=== PATIENT | male | born 1960 | race Caucasian/White ===

== ENCOUNTER 2018-08-16 13:08 | Emergency (ER) | payer SELFPAY ==
[2018-08-16 13:14] VITALS: BP 150/81; PULSE 84; RESP 18; TEMP 36.7; O2SAT 97
--- NOTE | 2018-08-16 13:27 | W.ED.GENAD ---
Discharge Plan Disposition Patient Disposition: HOME Condition: Stable Discharge Details Chief Complaint: Cellulitis Clinical Impression: Abscess or cellulitis of back Primary Care Provider: None,None ED Provider: Ann-Marie Cuadra Home Meds and New Rx's Prescriptions: New sulfamethoxazole-trimethoprim [Bactrim DS] 800-160 mg tablet 2 tab PO BID 7 Days Qty: 28 RF: 0 Discharge Instructions Instructions: Cellulitis (ED) Additional Instructions: Apply warm compresses to the affected area several times daily. Keep wound covered if risk of contamination. Otherwise keep open to air to allow to heal. Alternate Tylenol and Motrin as needed and directed for pain. Take the antibiotics until finished. You should receive a call from care management regarding follow-up with a primary care doctor for reevaluation. Return to the emergency department any worsening or new concerning symptoms. Discharge Data Discharge Date/Time-TO BE ENTERED AT DEPARTURE: 08/16/18 14:15 Discharge Physician: Ann-Marie Cuadra Medical Decision Making 58yo M with left mid back cellulitis and questionable abscess in center that he noted since yesterday. Patient has no fever and appears nontoxic. There is an approximate 4 x 4 centimeter area of erythema and induration with a very small 0.5 x 0.5 cm raised area which may be fluctuance in center. Bedside ultrasound was done and noted questionable abscess so area was anesthetized with 8 cc of lidocaine without epinephrine and incised with #15 blade but no pus drainage expressed and only blood expressed. Area was irrigated with normal saline and covered with gauze dressing. Dose of Bactrim given here and prescription for home. Patient was instructed on the importance of warm compresses, keeping area clean and dry, and to finish the antibiotics. He was instructed to return here immediately if worse with any signs of fever, worsening pain, redness or swelling or red streaking. Patient was placed on care management list to arrange for a follow-up appointment with a primary care doctor for reevaluation. HPI General Mode of arrival: ambulatory. Date/Time Provider Initiated Documentation: 08/16/18 13:13. Limitations to Documentation: no limitations. Information obtained by: patient. HPI Narrative: Patient is a 58yo M who presents to the ED with a complaint of a red painful lump on his left mid back that he noticed yesterday. Patient states the area has increased in size and hurts to touch. He denies known fever. He denies known insect bite. He states he has not used any medication on the area and did not attempt to manipulate the area. Past medical history: None Surgical history: Appendectomy Social history: Smokes tobacco, denies alcohol or drugs Meds: none Allergies: none PCP: none Related Data Home Medications Medication Instructions Recorded Confirmed sulfamethoxazole-trimethoprim 2 tab PO BID 7 Days #28 tab 08/16/18 [Bactrim DS] Previous Rx's Medication Instructions Recorded sulfamethoxazole-trimethoprim 2 tab PO BID 7 Days #28 tab 08/16/18 [Bactrim DS] Allergies Allergy/AdvReac Type Severity Reaction Status Date / Time No Known Allergies Allergy Unverified 08/16/18 13:19 General Stated Complaint: Cellulitis CHANTELLE: 4 Review of Systems Review of Systems All systems reviewed & are unremarkable except as noted in HPI and below Constitutional Reports as per HPI, Denies chills and Denies fever(s) Eyes Denies blurry vision ENT Denies dizziness, Denies sore throat and Denies throat swelling Cardiovascular Denies chest pain and Denies dyspnea Respiratory Denies dyspnea Gastrointestinal Denies abdominal pain, Denies diarrhea and Denies vomiting Genitourinary Denies hematuria and Denies dysuria Musculoskeletal Denies back pain and Denies numbness Integumentary/Breasts Denies lesions and Denies rash Neurologic Denies dizziness and Denies numbness Allergic/Immunologic Denies throat swelling [facility] Social History Smoking/Tobacco Use Status: Current every day Exam Const General: cooperative, healthy appearing and no acute distress [facility] Head: normal to inspection Mouth: oral mucosae normal Eyes General: appearance normal, both eyes and all related structures Neck Neck: normal visual inspection Resp Effort & Inspection: normal respiratory effort and able to speak in complete sentences Cardio Rate: regular rate Back/Spine/Pelvis Back: other Back/spine/pelvis image: 1. An approximate 4 x 4 centimeter area of erythematous induration and tenderness with a 0.5 x 0.5 cm area of fluctuance in center. No active bleeding or drainage. Skin General skin exam: no rashes or lesions noted Neuro General: alert, awake and oriented x3 Motor: muscle tone normal throughout Extrem General: normal to inspection and full ROM Psych Appearance: grossly normal Affect: normal affect Course Vital Signs Temperature 98.0 F 08/16/18 13:14 Pulse 84 08/16/18 13:14 Respiratory Rate 18 08/16/18 13:14 Blood Pressure 150/81 H 08/16/18 13:14 Pulse Oximetry 97 08/16/18 13:14 Temperature 98.0 F 08/16/18 13:14 Temperature Source Skin 08/16/18 13:14 Pulse 84 08/16/18 13:14 Respiratory Rate 18 08/16/18 13:14 Respiratory Effort 08/16/18 13:17 Blood Pressure 150/81 H 08/16/18 13:14 Blood Pressure Position Sitting 08/16/18 13:14 Pulse Oximetry 97 08/16/18 13:14 Pain Level 7 08/16/18 13:14 Procedures Abscess I/D Site: Back Side (if applicable): Left Local Anesthetic: Lidocaine 1% Amount of anesthesia used (mL): 8 Technique: Other (incised with #15 blade) Amount of fluid expressed (mL): 1 (only blood; no pus expressed) Irrigation: Yes Packing used?: None
[2018-08-16] MEDS: Sulfameth/Trimeth DS TAB 2 TAB PO (14:08)
[2018-08-16 14:10] VITALS: BP 138/79; PULSE 74; RESP 16; TEMP 36.7; O2SAT 98
== END 2018-08-16 14:15 | disposition home or self-care (01) ==
PROVIDERS: Emergency Provider Physician Assistant; PCP Nurse Practitioner Family
DX: L03.312 Cellulitis of back [any part except buttock and flank] (principal); L02.212 Cutaneous abscess of back [any part, except buttock and flank]
CPT/HCPCS: 10060

== ENCOUNTER 2021-01-05 17:42 | Emergency (ER) | payer SELFPAY ==
[2021-01-05] VITALS (36 sets, daily range): BP systolic 121–161; BP diastolic 57–83; PULSE 56–73; RESP 1–28; TEMP 37.2; O2SAT 88–98
--- NOTE | 2021-01-05 17:30 | RT.EKG_ITS ---
APPROVED REPORT Exam: Resting ECG Patient Location: E HR:71 bpm ECG Measurements Heart Rate 71 AXIS MT 157 P -7 QRSd 127 QRS -28 QT 398 T 48 QTc 433 Conclusion Sinus rhythm. RBBB..
[2021-01-05] MEDS: MORPHine 10 MG/ML VIAL 4 MG IVP (18:10)
--- NOTE | 2021-01-05 18:10 | ED.GENADUL_ITS ---
Discharge Plan Disposition Patient Disposition: HOME Condition: Improving Discharge Details Clinical Impression: Lingular pneumonia Primary Care Provider: Abril Hahn ED Provider: Jordy Melendez Home Meds and New Rx's Prescriptions: New cefdinir 300 mg capsule 300 mg PO Q12H 10 Days Qty: 20 RF: 0 Discharge Instructions Instructions: Pneumonia (ED) Additional Instructions: Home to rest today. Small, frequent sips of fluids so that you maintain good hydration. May use Tylenol and/or ibuprofen as needed for aches, pains, fever. Use incentive spirometer 10 times per hour while awake. Take antibiotics as prescribed. We will ask our care management team to arrange a follow-up for you to establish local primary care and to have a recheck. Return to the ER for any acute concerns. Medical Decision Making 60-year-old male presents from home complaining of the onset of left chest/epigastric discomfort that began yesterday. Intermittent at first and then persistent today. Worse with deep breath. Denies fall or injury. No nausea or vomiting. He is slightly hypertensive at 161/75, pulse 73, 95 to 97% on room air. He is almost guarding in the upper quadrants of the abdomen and splinting with breathing. Differential diagnosis includes basilar/left pneumonia, pneumothorax, mass, PE, ACS peptic ulcer disease, pancreatitis. Patient IV access established, given 4 mg of morphine, referred for screening EKG, laboratories, images. White blood cell count slightly elevated 11.1, hematocrit 47, platelets 299. Chemistries show sodium 135, potassium 3.5, chloride 99, bicarb 28, BUN 18, creatinine 1.0. LFTs unremarkable, troponin negative, lipase within normal limits. D-dimer negative. CT: There is a 9 mm nodule in the right lower lung. There is a parenchymal focus in the lingula measuring 2.7 x 1.3 cm; scarring versus atelectasis. No PE. Given the elevated white blood cell count, and the patient's history of smoking, I do feel this most likely represents a walking pneumonia. Patient given ceftriaxone, ketorolac, observed on a apprentice lineman third step and repeat troponin obtained. Repeat troponin is negative. After use of incentive spirometer, DuoNeb, patient is significantly improved. He was given ceftriaxone and I will place him on oral cephalosporin. He is improved and will ask care management to arrange a follow-up for him to establish local primary care. Lab Data Lab results reviewed: Yes I reviewed the patient's lab results. Labs: Laboratory Results - last 24 hr 01/05/21 01/05/21 01/05/21 17:50 17:50 17:50 WBC 11.15 H RBC 5.32 Hgb 16.1 Hct 47.1 MCV 88.5 MCH 30.3 MCHC 34.2 RDW 13.4 Plt Count 299 MPV 12.1 H Immature Gran % 0.0 Neutrophils % 52.0 Lymphocytes % 39.0 Monocytes % 6.0 Eosinophils % 3.0 Basophils % 0.0 Nucleated RBC % 0 Absolute Neutrophils 5.80 Absolute Lymphocytes 4.35 H Absolute Monocytes 0.67 Absolute Eosinophils 0.33 Absolute Basophils 0.00 RBC Morphology Normal PT 10.4 INR 1.0 APTT 23.9 D-Dimer 487 Sodium 135 L Potassium 3.5 Chloride 99 Carbon Dioxide 28.5 Anion Gap 7.5 BUN 18 Creatinine 1.0 Estimated GFR/1.73 m2 >= 60.00 Glucose 174 H Calcium 9.2 Magnesium 1.9 Total Bilirubin 0.3 AST 15 ALT 36 Alkaline Phosphatase 109 Troponin I < 0.05 Total Protein 8.0 Albumin 3.8 Lipase 368 Urine Color Urine Clarity Urine pH Ur Specific [place] Urine Protein Urine Ketones Urine Blood Urine Nitrite Urine Bilirubin Urine Urobilinogen Ur Leukocyte Esterase Urine Glucose 01/05/21 18:50 WBC RBC Hgb Hct MCV MCH MCHC RDW Plt Count MPV Immature Gran % Neutrophils % Lymphocytes % Monocytes % Eosinophils % Basophils % Nucleated RBC % Absolute Neutrophils Absolute Lymphocytes Absolute Monocytes Absolute Eosinophils Absolute Basophils RBC Morphology PT INR APTT D-Dimer Sodium Potassium Chloride Carbon Dioxide Anion Gap BUN Creatinine Estimated GFR/1.73 m2 Glucose Calcium Magnesium Total Bilirubin AST ALT Alkaline Phosphatase Troponin I Total Protein Albumin Lipase Urine Color Yellow Urine Clarity Clear Urine pH 5.5 Ur Specific [place] 1.015 Urine Protein Negative Urine Ketones Negative Urine Blood Negative Urine Nitrite Negative Urine Bilirubin Negative Urine Urobilinogen 0.2 Ur Leukocyte Esterase Negative Urine Glucose Negative HPI General Mode of arrival: ambulatory . Date/Time Provider Initiated Documentation: 01/05/21 17:57 . Limitations to Documentation: no limitations . Information obtained by: patient . History of Present Illness 60 year old M presents to the emergency department with the chief complaint of Left chest/epigastric pain, described as moderate and severe, Quality is described as constant, and is localized to the chest, abdomen and left. Patient started experiencing this day(s) and it has been intermittent. No relieving factors improve symptom(s), No exacerbating factors reported . Patient notes other (Worse with deep breath). Patient did receive the following treatments prior to arrival, none Related Data Home Medications Medication Instructions Recorded Confirmed cefdinir 300 mg PO Q12H 10 Days #20 cap 01/05/21 Previous Rx's Medication Instructions Recorded cefdinir 300 mg PO Q12H 10 Days #20 cap 01/05/21 Allergies Allergy/AdvReac Type Severity Reaction Status Date / Time No Known Allergies Allergy Unverified 01/05/21 17:56 General Stated Complaint: Chest Pain CHANTELLE: 2 Review of Systems Narrative: 6 systems reviewed and otherwise negative [facility] Social History Smoking/Tobacco Use Status: Current every day Tobacco Type: cigarettes Smoking risk assessment performed?: Yes Alcohol Intake: current Alcohol Intake frequency: a few times a week Drug use: Never Do you feel safe at home: Yes Do you feel safe in your relationship?: Yes Exam Narrative Exam Narrative: GEN: awake, alert, oriented 3. Pleasant, well groomed, interactive. HEAD: Normocephalic, atraumatic ENT: Mucous membranes moist, oropharynx unremarkable, External ear exam unremarkable EYES: PERRL, EOMI NECK: Full ROM, no GISELLA, no menigismus CHEST/RESP: Nontender, diminished throughout, subtle rhonchi left base CARDIOVASCULAR: RRR, no murmur, rub tatyana. 2+ Rad pulse bilateral ABDOMEN: Soft, tender in epigastrium, left upper quadrant, no mass. +Bowel sounds EXT: Full ROM, no edema, no rash Neuro: Grossly normal neurologic exam, conversant, interactive. Psych: Speech fluent, thoughts congruent, affect normal Course Vital Signs Vital signs: Vital Signs Temperature 37.2 C 01/05/21 17:51 Pulse 73 01/05/21 17:51 Respiratory Rate 28 H 01/05/21 17:51 Blood Pressure 161/75 H 01/05/21 17:51 Pulse Oximetry 95 01/05/21 17:51 Temperature 37.2 C 01/05/21 17:51 Temperature Source Temporal Artery Scan 01/05/21 17:51 Pulse 73 01/05/21 17:51 Respiratory Rate 16 01/05/21 18:00 Respiratory Effort Labored 01/05/21 18:00 Respiratory Depth Normal 01/05/21 18:00 Respiratory Pattern Normal 01/05/21 18:00 Blood Pressure 161/75 H 01/05/21 17:51 Blood Pressure Position Supine 01/05/21 17:51 Pulse Oximetry 95 01/05/21 17:51 Oxygen Delivery Method Room Air 01/05/21 17:51 Oxygen Flow Rate 0 01/05/21 17:51 Pain Level 9 01/05/21 17:51
[2021-01-05 18:26] LABS: Abs Immature Grans 0.02 10^3/uL (0.0-0.06); HCT 47.1 % (40.0-50.0); HGB 16.1 g/dL (13.5-17.5); MCH 30.3 pg (27.0-33.0); MCHC 34.2 % (32.0-36.0); MCV 88.5 fL (80-95); MPV 12.1 fL (8.0-11.0); Nucleated RBC 0 %; Platelet Count 299 10^3/uL (130-400); RBC 5.32 10^6/uL (4.36-5.78); RDW 13.4 % (11.8-14.1); RDW-SD 43.4 fL; WBC 11.15 10^3/uL (4.4-10.8)
[2021-01-05 18:48] LABS: Absolute Eosinophil Count 0.33 10^3/uL (0.0-0.7); Absolute Lymphocyte Count 4.35 10^3/uL (1.2-3.4); Absolute Monocyte Count 0.67 10^3/uL (0.1-0.8); PTT Activated 23.9 sec (21.0-27.5); Prothrombin Time 10.4 sec (9.3-11.0)
[2021-01-05 18:49] LABS: ALT 36 U/L (16-63); AST 15 U/L (15-37); Albumin 3.8 g/dL (3.4-5.0); Alkaline Phosphatase 109 U/L (46-116); Anion Gap 7.5 mmol/L (3-11); BUN 18 mg/dL (7-18); Bilirubin, Total 0.3 mg/dL (0.2-1.0); CO2 28.5 mmol/L (21.0-32.0); Calcium 9.2 mg/dL (8.5-10.1); Chloride 99 mmol/L (98-107); Diff Comment Manual Differential; Glucose 174 mg/dL (74-106); Lipase 368 U/L (73-393); Magnesium 1.9 mg/dL (1.8-2.4); Potassium 3.5 mmol/L (3.5-5.1); RBC Morphology Normal; Sodium 135 mmol/L (136-145)
[2021-01-05 18:50] LABS: Troponin I < 0.05 ng/mL (<0.06)
[2021-01-05 19:04] LABS: D-Dimer 487 ng/mlFEU (<500)
[2021-01-05 19:07] LABS: Bilirubin Negative (Negative); Blood Negative (Negative); Clarity Clear (Clear); Glucose Negative (Negative); Ketones Negative (Negative); Leukocyte Esterase Negative (Negative); Nitrite Negative (Negative); Specific Gravity 1.015 (1.005-1.025); Urobilinogen 0.2 EU/dL (Up TO 0.2); pH 5.5 (5-8)
[2021-01-05] MEDS: Normal Saline - Diluent 50 ML VIAL IV (19:13)
[2021-01-05] MEDS: Omnipaque 350 MG/ML 100 ML BTL IJ (19:14)
[2021-01-05] MEDS: Normal Saline Flush 10 ML SYR IVP (19:14)
--- NOTE | 2021-01-05 19:15 | DI.CT_ITS ---
EXAM: CT CHEST PE ABD PELVIS W CLINICAL HISTORY: LUQ/L chest pain. TECHNIQUE: Imaging Protocol: Axial CT angiography was performed with multi-slice acquisition and m ulti-planar and/or 3D reconstructions. CONTRAST MATERIAL: Intravenous: Omnipaque 350 Contrast volume:100 ml Oral: no COMPARISON: No exams were available for comparison FINDINGS: CHEST: Pulmonary Arteries: No evidence of filling defect to suggest pulmonary emboli. Tracheobronchial tree: Patent where visualized. Mediastinum and Collette: Small mediastinal lymph nodes. Pulmonary parenchyma: Limited by expiratory changes and respiratory motion. Question of diffuse bila teral infiltrates. 7 millimeter nodule at the right lower lobe. Scarring or atelectasis at the ling [place]. Pleura: No effusion or pneumothorax. Heart: The heart is not dilated. No coronary artery calcifications are seen. Aorta: Thoracic aorta non-dilated. Mild atherosclerotic changes. Tortuous distally. Bones: Normal. Tubes, Catheters, and Lines: None ABDOMEN AND PELVIS: Abdomen: Celiac axis/mesenteric arteries: No evidence of occlusion or significant stenosis. Renal Arteries: No evidence of occlusion or significant stenosis. There is a single renal artery per fusing each kidney. Aorta: No evidence of occlusion or significant stenosis. No aneurysm or dissection. Moderate ath erosclerotic changes. Pelvis: Iliac Arteries: No evidence of occlusion or significant stenosis. Common Femoral Arteries: No evidence of occlusion or significant stenosis. ABDOMEN: Liver: Mildly enlarged. Mild to moderate fatty infiltration.. No measurable mass. Portal, Superior Mesenteric, and Splenic Veins: Unremarkable. Gallbladder and Biliary Tract: Small gallstones. No biliary dilation. Pancreas: Normal density, no abnormal calcifications or inflammatory process. Spleen: Normal. Adrenals: No masses seen. Kidneys: Normal size, contour and axis. No radiodense stones or obstructive uropathy. No masses seen. Renal cysts. Bowel: No obstruction or bowel wall thickening. Appendix is not visualized. Peritoneal Cavity: No ascites, collection or mesenteric inflammatory response. Lymph Nodes: Within normal limits. Bones: Degenerative changes. Soft Tissues: Unremarkable. PELVIS: Bladder: Symmetric distention, mild wall thickening. Reproductive Organs: Unremarkable as visualized. Lymph Nodes: Within normal limits. Bones: Degenerative changes. IMPRESSION: No pulmonary embolism. 7mm nodule Right lower lobe. Recommend Chest Ct in 3months. Cholelithiasis. No evidence of acute cholecystitis. RADIATION DOSE DELIVERED: 1,552.07mGy.cm Total DLP 1,552.07mGy.cm Total DLP DATA REPOSITORY: All CT scans at this facility are submitted to the National Radiology Data Registry (NRDR) Dose Index Registry (DIR) with the [employer] (ACR). RADIATION OPTIMIZATION: All CT scans at this facility use at least one of these dose optimization te chniques: automated exposure control; mA and/or kV adjustment per patient size (includes targeted exa ms where dose is matched to clinical indication); or iterative reconstruction.
--- NOTE | 2021-01-05 19:57 | DI.VRAD_ITS ---
PROCEDURE INFORMATION: Exam: CTA Chest With Contrast Exam date and time: 01/05/2021 6:31 PM Age: 60 years old Clinical indication: Chest pain; Type not specified; Abdominal pain; Localized; Left upper quadrant (luq) TECHNIQUE: Imaging protocol: Computed tomographic angiography of the chest with contrast. 3D rendering (Not supervised by radiologist): MIP and/or 3D reconstructed images were created by the technologist. Total images: [id number] Radiation optimization: All CT scans at this facility use at least one of these dose optimization techniques: automated exposure control; mA and/or kV adjustment per patient size (includes targeted exams where dose is matched to clinical indication); or iterative reconstruction. Contrast material: [id number]; Contrast volume: 100 ml; Contrast route: INTRAVENOUS (IV); COMPARISON: No relevant prior studies available. FINDINGS: Pulmonary arteries: No filling defect in the pulmonary arterial tree. Aorta: There is mild atherosclerotic change within a tortuous thoracic aorta without aneurysm or dissection. Lungs: There is a 9 mm nodule in the right lower lobe (image 318 of series 5). There is a parenchymal focus in the lingula measuring 2.7 x 1.3 cm most likely representing scarring versus atelectasis. There is a generalized mosaic attenuation pattern throughout both lungs which may be due to air trapping. No consolidation. Pleural spaces: No pneumothorax. No pleural effusion. Heart: No pericardial effusion. Lymph nodes: There is a borderline enlarged 1.1 cm right paratracheal node and a similar sized left hilar node. There are enlarged but fatty containing axillary nodes. Bones/joints: No significant bony or joint space abnormality. Soft tissues: Extrathoracic soft tissues are unremarkable. IMPRESSION: 1. No acute findings. No PE. 2. 9 mm right lower lobe nodule. Abnormal parenchymal focus within the lingula probably although not definitively representing scar or atelectasis. For both low risk and high risk patients, consider CT Chest at 3 months, PET/CT, or biopsy. (Reference: Gloria) REFERENCES: Gloria Goldberg et al. Guidelines for Management of Incidental Pulmonary Nodules Detected on CT Images: From the Fleischner Society 2017. Radiology. 2017;284(1):228-243. PROCEDURE INFORMATION: Exam: CT Angiography Abdomen With Contrast Exam date and time: 01/05/2021 6:31 PM Age: 60 years old Clinical indication: Chest pain; Type not specified; Abdominal pain; Localized; Left upper quadrant (luq) TECHNIQUE: Imaging protocol: Computed tomographic angiography images of the abdomen with intravenous contrast material. 3D rendering (Not supervised by radiologist): MIP and/or 3D reconstructed images were created by the technologist. Radiation optimization: All CT scans at this facility use at least one of these dose optimization techniques: automated exposure control; mA and/or kV adjustment per patient size (includes targeted exams where dose is matched to clinical indication); or iterative reconstruction. Contrast material: [id number]; Contrast volume: 100 ml; Contrast route: INTRAVENOUS (IV); COMPARISON: No relevant prior studies available. FINDINGS: Aorta: There is moderate atherosclerotic change within the wall the abdominal aorta but without aneurysm or dissection. Celiac trunk and mesenteric arteries: No occlusion or significant stenosis. Renal arteries: No occlusion or significant stenosis. Left iliac arteries: Mild to moderate bilateral common and external iliac disease. Liver: Normal. No mass. Gallbladder and bile ducts: There are multiple dependent calcified stones within the gallbladder. Pancreas: Normal. No ductal dilation. Spleen: No splenomegaly. Adrenals: Normal. No mass. Kidneys and ureters: There are incidental small renal cysts. No hydronephrosis. Stomach and bowel: Unremarkable. No small or large bowel dilatation. No pericolonic inflammation. Appendix: The appendix is not identified. Lymph nodes: Unremarkable. No enlarged lymph nodes. Intraperitoneal space: Unremarkable. No free air. No significant fluid collection. Reproductive: The prostate is mildly enlarged. Bladder: There is mild bladder wall thickening. Bones/joints: Unremarkable. No acute fracture. No dislocation. Soft tissues: Unremarkable. IMPRESSION: 1. No acute finding. 2. Cholelithiasis. 3. Additional findings as noted above. Dictated and Authenticated by: Jordy Shannon MD. Ordering:ESEQUIEL Spence MD
[2021-01-05] MEDS: Ketorolac 15 MG/ML VIAL IVP (20:05)
[2021-01-05] MEDS: cefTRIAXone 1 GM/50 ML BAG IVPB (20:08)
[2021-01-05] MEDS: Albuterol/Ipratropium 3 ML UPD VIAL UPD (20:14)
--- NOTE | 2021-01-05 20:27 | NUR.NOTE ---
Nursing Note:Attempt to call report to Moira at [facility], will call me back
[2021-01-05 22:14] LABS: Troponin I < 0.05 ng/mL (<0.06)
--- NOTE | 2021-01-06 02:54 | NUR.NOTE ---
Nursing Note: referral for pcp/pneumonia faxed to care management 01/06/21 libl
--- NOTE | 2021-01-06 10:15 | CMPROGNOTE_ITS ---
- If Service Date Differs Date of service: 01/06/21 Time of Service: 10:16 Care Management Progress Note Rayo is seen in the ED for lingular pneumonia. At the request of ED provider, CM coordinates a referral to Dr. Stanislaw Siu of [facility] [[email or web address]], on-call provider, to assist Rayo in obtaining a follow up appointment and in establishing care with a PCP.
== END 2021-01-05 23:04 | disposition home or self-care (01) ==
PROVIDERS: Emergency Provider Emergency Medicine; PCP Nurse Practitioner Family
DX: J18.1 Lobar pneumonia, unspecified organism (principal)
CPT/HCPCS: 71275; 74177; 80053; 83690; 93005; 94640; 96365; 96375; 99285; 81003; 83735; 84484; 85025; 85379; 85610; 85730; 93010; 99284; J0696; J1885; J2270; J3490; J7620

== ENCOUNTER 2021-03-17 10:01 | Inpatient (IN) | payer MEDICAID, SELFPAY ==
[2021-03-17] VITALS (86 sets, daily range): BP systolic 107–154; BP diastolic 59–90; PULSE 61–153; RESP 17–39; TEMP 36.6–37.2; O2SAT 89–97
--- NOTE | 2021-03-17 10:00 | RT.EKG_ITS ---
APPROVED REPORT Exam: Resting ECG Reason for Exam: chest pain Patient Location: E HR:76 bpm ECG Measurements Heart Rate [address] 155 P 9 QRSd 110 QRS -9 QT 374 T 43 QTc 419 Conclusion Sinus rhythm...normal P axis, V-rate 60- 99 ST elevation, consider inferior injury...ST >0.08mV, II III aVF
--- NOTE | 2021-03-17 10:00 | DI.CT_ITS ---
Exam(s) CT THORAX ABDOMEN CTA EXAM: CT THORAX ABDOMEN CTA CLINICAL HISTORY: central chest pain from neck to upper abd, 1d. TECHNIQUE: Imaging Protocol: Axial computed tomography images with coronal and sagittal reformatted images were created and reviewed CONTRAST MATERIAL: Intravenous: Omnipaque 350 Contrast volume:100 ml Oral: None COMPARISON: CT CT CHEST PE ABD PELVIS W from 01/05/2021 FINDINGS: CHEST: Images somewhat degraded by respiratory motion artifact. LUNGS: There is infiltrate in left lower lobe and moderate-sized left pleural effusion with some volu me loss in the basal segments of the left lower lobe.. Mild increased markings but without confluent infiltrates are seen in the right lower lobe. There is no pleural effusion on the right side. Ther e are no focal findings in the trachea and mainstem bronchi. MEDIASTINUM: No significant hilar nor mediastinal adenopathy. Visualized thyroid unremarkable. CARDIAC: Heart size minimally prominent. There is a small pericardial effusion with thickness 5 mill imeters. AORTA: Caliber of the thoracic aorta is within normal limits.There is no evidence of aortic dissectio n. ABDOMEN: The pelvis was not scanned and therefore the abdominal aorta appears to have been imaged to a level j ust above the bifurcation. There is some atherosclerotic involvement of the infrarenal abdominal aorta most prominent distally. The inferior mesenteric artery is patent but there is significant circumferential plaque at this lev el and lack of normal tapering. The diameter of the distal most abdominal aorta is 2.2 cm. More proximally the celiac and superior mesenteric arteries are nicely patent with no significant dee dee nosis at their origins. There is some posterior wall noncalcified plaque in the abdominal aorta just above the level of the takeoff points of the renal arteries. There is a solitary renal artery on ea ch side with no significant ostial stenosis nor stenosis more distally in the renal arteries and no e vidence of fibromuscular dysplasia of the renal arteries. Kidneys exhibit normal size. There is no ascites. There are no ischemic appearing bowel loops. LIVER: There are no focal hepatic lesions nor dilatation of intrahepatic ducts. GALLBLADDER/BILIARY: There are multiple gallstones in the gallbladder lumen. The gallbladder is not distended and the gallbladder wall is not edematous. There is no pericholecystic fluid. CBD is not dilated. PANCREAS: No evidence of pancreatic mass nor dilatation of the pancreatic duct. SPLEEN: Spleen is not enlarged. There are no intrasplenic lesions. ADRENALS: There are no significant adrenal masses. KIDNEYS: There is a 1.8 x 1.8 cm cyst in the anterior cortex of the left kidney. No other focal gayle l findings the exception of a small 6 millimeter exophytic cyst off the lateral cortex left kidney. No calculi nor hydronephrosis.. ABDOMINAL AORTA: As above LYMPH NODES: There is no retroperitoneal nor para-aortic adenopathy. No obvious mesenteric masses. ABDOMINAL WALL: In the field of view of this study there is no evidence of anterior abdominal wall he rnia. GI: There are diverticuli in the visualized upper half of the descending left colon without evidence of obvious diverticulitis. The appendix is not included in the field of view of this CT study (pelvi s was not scanned). There is no bowel obstruction. OSSEOUS: The pelvis was not scanned IMPRESSION: 1. On this CTA study there is no evidence of aortic dissection. However, there is significant athero sclerotic involvement of the lower abdominal aorta. However, this study did not include the pelvis a nd therefore the aortic bifurcation and aortoiliac segments were not included in the field of view. Therefore cannot be assessed. The inferior mesenteric artery is patent as are the celiac and superio r mesenteric arteries. There is no significant stenosis in the renal arteries although there is some plaque in the posterior wall of the abdominal aorta just above the renal artery levels, this plaque being noncalcified. There is no aneurysm at this level. 2. Heart size is minimally prominent. There is a small pericardial effusion with maximum thickness o f 5 millimeters. 3. There is infiltrate in the left lower lobe and there is a moderate-sized left pleural effusion RADIATION DOSE DELIVERED: 912.29mGy.cm Total DLP DATA REPOSITORY: All CT scans at this facility are submitted to the National Radiology Data Registry (NRDR) Dose Index Registry (DIR) with the [employer] (A[employer]). RADIATION OPTIMIZATION: All CT scans at this facility use at least one of these dose optimization te chniques: automated exposure control; mA and/or kV adjustment per patient size (includes targeted exa ms where dose is matched to clinical indication); or iterative reconstruction.
[2021-03-17] MEDS: Normal Saline 500 ML 30 ML IV (10:12)
[2021-03-17] MEDS: nitroGLYcerin 0.4 MG TAB SL ×3 (10:13→10:24)
[2021-03-17 10:24] LABS: Abs Immature Grans 0.09 10^3/uL (0.0-0.06); Absolute Basophil Count 0.11 10^3/uL (0.0-0.2); Absolute Eosinophil Count 0.21 10^3/uL (0.0-0.7); Basophils % 0.7; Eosinophils % 1.3; HCT 48.7 % (40.0-50.0); HGB 16.1 g/dL (13.5-17.5); Immature Grans % 0.6; Lymphocytes % 12.9; MCH 29.7 pg (27.0-33.0); MCHC 33.1 % (32.0-36.0); MCV 89.7 fL (80-95); MPV 11.8 fL (8.0-11.0); Monocytes % 12.3; Neutrophils % 72.2; Nucleated RBC 0 %; RBC 5.43 10^6/uL (4.36-5.78); RDW 13.5 % (11.8-14.1); RDW-SD 44.4 fL
[2021-03-17 10:28] LABS: Absolute Neutrophil Count 11.77 10^3/uL (1.2-6.7)
[2021-03-17] MEDS: Omnipaque 350 MG/ML 100 ML BTL IJ (10:30)
[2021-03-17] MEDS: Normal Saline - Diluent 50 ML VIAL IV (10:31)
[2021-03-17 10:40] LABS: ALT 23 U/L (16-63); AST 7 U/L (15-37); Albumin 3.5 g/dL (3.4-5.0); Alkaline Phosphatase 129 U/L (46-116); Anion Gap 9.5 mmol/L (3-11); BUN 12 mg/dL (7-18); Bilirubin, Total 0.8 mg/dL (0.2-1.0); CO2 26.5 mmol/L (21.0-32.0); Calcium 8.8 mg/dL (8.5-10.1); Chloride 100 mmol/L (98-107); Glucose 279 mg/dL (74-106); INR 1.1 (0.9-1.1); Magnesium 1.9 mg/dL (1.8-2.4); PTT Activated 23.9 sec (21.0-27.5); Prothrombin Time 10.7 sec (9.3-11.0); Sodium 136 mmol/L (136-145); Troponin I < 0.05 ng/mL (<0.06)
[2021-03-17 10:41] LABS: Diff Comment Agrees w/ Instrument; Platelet Count 343 10^3/uL (130-400); RBC Morphology Normal
--- NOTE | 2021-03-17 11:00 | RT.EKG_ITS ---
APPROVED REPORT Exam: Resting ECG Reason for Exam: tachycardia Patient Location: E HR:142 bpm ECG Measurements Heart Rate 142 AXIS ND [id number] P [id number] QRSd 106 QRS -25 QT 307 T 39 QTc 473 Conclusion Atrial fibrillation...V-rate 101-188, irreg A-activity
--- NOTE | 2021-03-17 11:08 | W.ED.GENAD ---
Discharge Plan Disposition Patient Disposition: [facility] INPATIENT Condition: Critical Discharge Details Clinical Impression: Pulmonary infiltrate, Pleural effusion, Pericardial effusion, Atrial fibrillation with rapid ventricular response Admit Date/Time: 03/17/21 11:50 Admit Provider: Dani Law Attending Provider: Dani Law Primary Care Provider: Abril Hahn ED Provider: Aleksey Lopez Discharge Data Discharge Date/Time-TO BE ENTERED AT DEPARTURE: 03/17/21 13:35 Medical Decision Making Initial EKG reviewed and interpreted by me, nondiagnostic. 1105 --patient noted to have A. fib with rapid ventricular response on monitor, heart rate 140s, I went to assess the patient who notes he is having increasing central pain. Blood pressure stable. A second EKG was reviewed and consistent with A. fib with rapid ventricular response heart rate 142, no STEMI. --CTA of the chest and abdomen was interpreted by radiology who I spoke with: No dissection, left lower lobe infiltrate noted with left pleural effusion as well as small pericardial effusion. No signs of central pulmonary embolism. Labs reviewed and leukocytosis is noted. Normal electrolytes, initial troponin negative. 1135 --Patient was given diltiazem 15 mg IV and started on infusion. He had no improvement in heart rate and continued to have chest pain. Patient provided informed consent to electrical cardioversion. Synchronized electrical cardioversion performed with 50 J. Patient was given 100 mcg of fentanyl preprocedurally. Patient immediately converted to sinus rhythm in the 80s. Unfortunate within minutes he reverted to A. fib in the 120s to 130s. Plan at this time will be to give an additional bolus of diltiazem 20 mg and increase infusion. I will give IV antibiotics for infiltrate and given leukocytosis although patient has not had cough or fever. Patient will require admission to ICU. Procedure note: Cardioversion Indication: A. fib with RVR, symptomatic Consent: Emergent, verbal Note: Patient was given fentanyl 100 mcg for pain and synchronized electrical cardioversion was performed with 50 J. Patient successfully converted to sinus rhythm. Complications: None HPI General Mode of arrival: ambulatory. Date/Time Provider Initiated Documentation: 03/17/21 10:03. Limitations to Documentation: no limitations. Information obtained by: patient. HPI Narrative: 60-year-old male smoker with recent prior history of pneumonia, presents with chief complaint of chest pain. Patient notes pain started last night and has persisted. Pain is localized to his throat and radiates to his upper abdomen. Pain increases with certain positions including leaning forward and also with deep breaths. Pain is currently severe is 8/10. Patient denies recent cough or fever. No leg swelling or calf pain. Related Data Home Medications Medication Instructions Recorded Confirmed Unknown [No Known Home Meds] 03/17/21 03/17/21 Allergies Allergy/AdvReac Type Severity Reaction Status Date / Time No Known Allergies Allergy Unverified 03/17/21 10:16 General Stated Complaint: Chest Pain CHANTELLE: 2 Review of Systems All systems reviewed & are unremarkable except as noted in HPI and below Constitutional Constitutional: Denies fever(s) Cardiovascular Cardiovascular: Reports as per HPI [facility] Social History Smoking/Tobacco Use Status: Current every day Tobacco Type: cigarettes Smoking risk assessment performed?: Yes Alcohol Intake: current Alcohol Intake frequency: a few times a week Drug use: Never Do you feel safe at home: Yes Do you feel safe in your relationship?: Yes Exam Const General: cooperative and no acute distress HENMT Head: normocephalic and atraumatic Mouth: moist mucous membranes Eyes Conjunctivae: normal conjunctivae Sclera: normal sclerae EOM: EOM intact bilaterally Neck Neck: trachea midline and supple Resp Auscultation: clear to auscultation bilaterally, no rales, no rhonchi and no wheezes Cardio Rate: regular rate and not tachycardic Rhythm: regular rhythm GI Palpation: soft, not firm, no guarding, no masses, not rigid and nontender Skin General skin exam: no rashes or lesions noted Neuro General: patient alert, patient awake, patient oriented x3 and tone normal Extrem General: no calf tenderness and no edema Psych Appearance: grossly normal Mental Status: mental status grossly normal Speech and Movement: speech and movement normal Course Vital Signs Vital signs: Vital Signs Respiratory Rate 28 H 03/17/21 10:06 Pulse Oximetry 91 L 03/17/21 10:06 Temperature 36.6 C 03/17/21 10:07 Temperature Source Temporal Artery Scan 03/17/21 10:07 Pulse 77 03/17/21 10:16 Pulse 90 03/17/21 10:20 Respiratory Rate 29 H 03/17/21 10:20 Respiratory Effort Incrsd Work of Breathing 03/17/21 10:20 Respiratory Pattern Irregular 03/17/21 10:20 Blood Pressure 131/70 03/17/21 10:16 Blood Pressure Mean 85 03/17/21 10:16 Blood Pressure Position Supine 03/17/21 10:07 Pulse Oximetry 92 03/17/21 10:20 Oxygen Delivery Method Nasal Cannula 03/17/21 10:10 Oxygen Flow Rate 1 03/17/21 10:10 Pain Level 5 03/17/21 10:29 Lab/Test Results Lab/Test Results: Laboratory Tests Range/Units 03/17/21 03/17/21 03/17/21 10:10 10:10 10:10 WBC (4.4-10.8) 10^3/uL 16.30 H RBC (4.36-5.78) 10^6/uL 5.43 Hgb (13.5-17.5) g/dL 16.1 Hct (40.0-50.0) % 48.7 MCV (80-95) fL 89.7 MCH (27.0-33.0) pg 29.7 MCHC (32.0-36.0) % 33.1 RDW (11.8-14.1) % 13.5 Plt Count (130-400) 10^3/uL 343 MPV (8.0-11.0) fL 11.8 H Immature Gran % 0.6 Neutrophils % 72.2 Lymphocytes % 12.9 Monocytes % 12.3 Eosinophils % 1.3 Basophils % 0.7 Nucleated RBC % % 0 Absolute Neutrophils (1.2-6.7) 10^3/uL 11.77 H Absolute Lymphocytes (1.2-3.4) 10^3/uL 2.10 Absolute Monocytes (0.1-0.8) 10^3/uL 2.00 H Absolute Eosinophils (0.0-0.7) 10^3/uL 0.21 Absolute Basophils (0.0-0.2) 10^3/uL 0.11 RBC Morphology Normal PT (9.3-11.0) sec 10.7 INR (0.9-1.1) 1.1 APTT (21.0-27.5) sec 23.9 Sodium (136-145) mmol/L 136 Potassium (3.5-5.1) mmol/L 4.0 Chloride (98-107) mmol/L 100 Carbon Dioxide (21.0-32.0) mmol/L 26.5 Anion Gap (3-11) mmol/L 9.5 BUN (7-18) mg/dL 12 Creatinine (0.70-1.30) mg/dL 1.0 Estimated GFR/1.73 m2 (mL/min/1.73m2) >= 60.00 Glucose (74-106) mg/dL 279 H Calcium (8.5-10.1) mg/dL 8.8 Magnesium (1.8-2.4) mg/dL 1.9 Total Bilirubin (0.2-1.0) mg/dL 0.8 AST (15-37) U/L 7 L ALT (16-63) U/L 23 Alkaline Phosphatase (46-116) U/L 129 H Troponin I (<0.06) ng/mL < 0.05 Total Protein (6.4-8.2) g/dL 8.0 Albumin (3.4-5.0) g/dL 3.5 Critical Care Time Critical Care Time Critical Care Time: Yes Total Critical Care Time: 65 Attestation: I spent greater than 65 minutes addressing this patient's immediate life threats. Please see MDM section of note. This time was spent engaged in work directly related to the patient's care, exclusive of separate procedures, and failure to initiate these interventions would have likely resulted in clinically significant or life threatening deterioration in the patient's condition.
[2021-03-17] MEDS: dilTIAZem 25 MG/5 ML VIAL 15 MG IVP (11:10)
[2021-03-17] MEDS: dilTIAZem 125 MG in Normal Saline 100 ML IV (11:24)
[2021-03-17] MEDS: fentaNYL 100 MCG/2 ML VIAL IVP (11:28)
--- NOTE | 2021-03-17 11:30 | RT.EKG_ITS ---
APPROVED REPORT Exam: Resting ECG Reason for Exam: rapid heart rate Patient Location: E HR:71 bpm ECG Measurements Heart Rate 71 AXIS WI 189 P -1 QRSd 106 QRS -21 QT 348 T 41 QTc 374 Conclusion Sinus rhythm...normal P axis, V-rate 60- 99 Atrial premature complexes...SV complexes w/ short R-R intvls Inferior infarct, acute...ST>0.10mV, T upright, II III aVF Consider anterior infarct...Q >30mS in V2-V5
[2021-03-17] MEDS: dilTIAZem 25 MG/5 ML VIAL 20 MG IVP (11:35)
[2021-03-17] MEDS: cefTRIAXone 2 GM/50 ML BAG IVPB (11:42)
[2021-03-17 13:20] LABS: Source Nasal/Nares
[2021-03-17 13:38] LABS: Troponin I < 0.05 ng/mL (<0.06)
[2021-03-17] MEDS: Enoxaparin 40 MG/0.4 ML SYR SC (14:32)
[2021-03-17 15:22] LABS: COVID-19 PCR Negative (Negative)
[2021-03-17 15:31] LABS: Hemoglobin A1C 9.9 % (<5.7)
--- NOTE | 2021-03-17 16:15 | RT.EKG_ITS ---
APPROVED REPORT Exam: Resting ECG Reason for Exam: CONVERSION OUT OF AFIB Patient Location: I HR:78 bpm ECG Measurements Heart Rate 78 AXIS WA 161 P 19 QRSd 101 QRS -12 QT 345 T 27 QTc 395 Conclusion Sinus rhythm...normal P axis, V-rate 60- 99
--- NOTE | 2021-03-17 16:37 | W.PM.HP.N ---
Date of service: 03/17/21 Time of Service: 16:37 Assessment and Plan Assessment and plan (1) Lingular pneumonia: Status: Acute Assessment and plan: Rocephin 1 gram Q24H initiated. Monitor WBC count. (2) Pericardial effusion: Status: Acute Assessment and plan: Echocardiogram ordered. (3) Atrial fibrillation with rapid ventricular response: Status: Acute Assessment and plan: Converted back to NSR. Unknown whether he has had a h/o afib that wasn't recognized by the patient. Doesn't see a physician. Initiated Cardizem CD 180mg now and then QHS; titrate if necessary. (4) Diabetes mellitus: Status: Chronic Assessment and plan: New onset. + FH A1c 9.9 Lantus 15units HS SS correction dosing of insulin; FSBS ACHS professor computer science consulted. Will initiate metformin upon d/c. Consider GLP-1 medication; check insurance coverage. (5) Chest pain: Status: Acute Assessment and plan: Appears to be related to the rapid ventricular rate he experience when in afib. Trop negative x 3. CP free now; in NSR. Will initiate an ASA daily given risk factors of DM, tobacco abuse, obesity. Monitor BP. SBP in the 120-140's range since presentation. History of Present Illness History of Present Illness Chief Complaint: Chest Pain Narrative: This is a 60 yo male that has not been seen by a physician on a routine basis for >20 yrs. He was evaluated in the ED here in December of this year and prescribed antibiotic for pneumonia. He presented now with c/o chest pain. He describes Left sided chest pain that radiated into the mid neck. The pain began the night prior to admission. Worsened with leaning forward and with a deep breath. Pain was 8/10 upon presentation to the ED. He denied palpitations, N/V, diaphoresis. He was noted to have atrial fibrillation with a rapid ventricular response on monitor. EKG confirmed this. HR in the 140's. No STEMI noted. A CTA of the chest and abd showed a LLL infiltrate and a small pericardial effusion. No evidence of pulmonary embolism. He was given 15mg IV diltiazem with no improvement in heart rate and he continued to describe chest pain. Synchronized electrical cardioversion performed with 50 J and he converted to sinus rhythm in the 80's. However, he then returned to atrial fibrillation with a ventricular rate in the 120-130's. Diltiazem 20mg IV given and a diltiazem drip initiated. He subsequently did convert back to sinus rhythm. He denied a cough/sputum/SOA. Rocephin was initiated for evidence of PNA. His WBC count was 16.30. His glucose was 279. Creatinine 1.0. K 4.0. Mg 1.9. AST 7. ALT 23. Troponin < 0.05. Admitted to the ICU. Review of Systems All systems reviewed & are unremarkable except as noted in HPI and below PFSH Social History Smoking/Tobacco Use Status: Current every day Tobacco Type: cigarettes Smoking risk assessment performed?: Yes Alcohol Intake: current Alcohol Intake frequency: a few times a week Drug use: Never Do you feel safe at home: Yes Do you feel safe in your relationship?: Yes Meds Allergies and Home Medications Allergies Allergy/AdvReac Type Severity Reaction Status Date / Time No Known Allergies Allergy Unverified 03/17/21 10:16 Home Medications Medication Instructions Recorded Confirmed Type Unknown [No Known Home Meds] 03/17/21 03/17/21 History Exam Const General: cooperative and no acute distress Nutritional Appearance: obese Orientation: alert and oriented x3 Eyes Sclera: sclerae normal Pupils: PERRL Neck Neck: full ROM and no JVD Resp Effort & Inspection: normal respiratory effort Auscultation: clear to auscultation bilaterally Cardio Rate: regular rate Rhythm: regular rhythm Heart Sounds: S1 normal and S2 normal GI Palpation: soft and nontender Skin General skin exam: no rashes or lesions noted Extrem General: no pedal edema and no calf tenderness Psych Appearance: grossly normal Speech and Movement: speech and movement normal Affect: normal affect Results Labs Result diagrams: 03/17/21 10:10 03/17/21 10:10 Labs: Laboratory Results - last 24 hr 03/17/21 03/17/21 03/17/21 10:10 10:10 10:10 WBC 16.30 H RBC 5.43 Hgb 16.1 Hct 48.7 MCV 89.7 MCH 29.7 MCHC 33.1 RDW 13.5 Plt Count 343 MPV 11.8 H Immature Gran % 0.6 Neutrophils % 72.2 Lymphocytes % 12.9 Monocytes % 12.3 Eosinophils % 1.3 Basophils % 0.7 Nucleated RBC % 0 Absolute Neutrophils 11.77 H Absolute Lymphocytes 2.10 Absolute Monocytes 2.00 H Absolute Eosinophils 0.21 Absolute Basophils 0.11 RBC Morphology Normal PT 10.7 INR 1.1 APTT 23.9 Sodium 136 Potassium 4.0 Chloride 100 Carbon Dioxide 26.5 Anion Gap 9.5 BUN 12 Creatinine 1.0 Estimated GFR/1.73 m2 >= 60.00 Glucose 279 H Hemoglobin A1c Calcium 8.8 Magnesium 1.9 Total Bilirubin 0.8 AST 7 L ALT 23 Alkaline Phosphatase 129 H Troponin I < 0.05 Total Protein 8.0 Albumin 3.5 COVID-19 Source SARS-CoV-2 (PCR) 03/17/21 03/17/21 03/17/21 10:10 12:25 13:10 WBC RBC Hgb Hct MCV MCH MCHC RDW Plt Count MPV Immature Gran % Neutrophils % Lymphocytes % Monocytes % Eosinophils % Basophils % Nucleated RBC % Absolute Neutrophils Absolute Lymphocytes Absolute Monocytes Absolute Eosinophils Absolute Basophils RBC Morphology PT INR APTT Sodium Potassium Chloride Carbon Dioxide Anion Gap BUN Creatinine Estimated GFR/1.73 m2 Glucose Hemoglobin A1c 9.9 H Calcium Magnesium Total Bilirubin AST ALT Alkaline Phosphatase Troponin I < 0.05 Total Protein Albumin COVID-19 Source Nasal/nares SARS-CoV-2 (PCR) Negative Last Vital Signs Temp 36.6 C 03/17/21 10:07 Pulse 67 03/17/21 13:11 Resp 28 H 03/17/21 13:11 BP 140/75 03/17/21 13:11 Pulse Ox 95 03/17/21 13:11
[2021-03-17 17:33] LABS: Troponin I < 0.05 ng/mL (<0.06)
[2021-03-17] MEDS: dilTIAZem CD 180 MG CAPCR PO ×2 (17:48→22:10)
[2021-03-17] MEDS: Insulin Aspart 300 UNITS/3 ML PEN SC (17:48)
[2021-03-17] MEDS: Magnesium Oxide 400 MG TAB 800 MG PO (22:10)
[2021-03-17] MEDS: Insulin Glargine 300 UNITS/3 ML PEN 15 UNITS SC (22:11)
[2021-03-18] VITALS (26 sets, daily range): BP systolic 119–150; BP diastolic 59–88; PULSE 63–81; RESP 18–28; TEMP 36.6–37; O2SAT 87–95
--- NOTE | 2021-03-18 | DI.US_ITS ---
APPROVED REPORT EXAM: Comprehensive 2D, Doppler, and color-flow Echocardiogram Patient Location: [facility] Worker: Adriana Storey RDCS (AE) Indications: Atrial Fibrillation, EKG Abnormalities Other Information Study Quality: Adequate Conclusion Normal left ventricular wall thickness and chamber size. Estimated ejection fraction is 55 to 60%. Wall motion is normal Normal right ventricular size and systolic function Both atria are normal in size There is no structural or hemodynamically significant valvular disease Mildly dilated ascending aorta measuring 3.66 cm Small circumferential pericardial effusion Wall motion Left Ventricle The left ventricle is normal size. The left ventricular systolic function is normal. The left ventric ular ejection fraction is within the normal range. There is normal left ventricular wall thickness. T here is normal LV segmental wall motion. There is no ventricular septal defect visualized. LVEF is 55 -60%. Right Ventricle The right ventricle is normal size. The right ventricular systolic function is normal. The RVSP is 27 .8 mmHg. Atria The left atrium size is normal. The right atrium size is normal. The interatrial septum is intact wit h no evidence for an atrial septal defect. Aortic Valve The aortic valve is normal in structure. Aortic valve is trileaflet. There is no aortic valvular sten osis. No aortic regurgitation is present. Mitral Valve The mitral valve is normal in structure. No evidence of mitral valve stenosis. Trace mitral regurgita tion. Tricuspid Valve The tricuspid valve is normal in structure. There is no tricuspid valve stenosis. Trace tricuspid reg urgitation. Pulmonic Valve The pulmonary valve is normal in structure. There is no pulmonic valvular stenosis. There is no pulmo kristina valvular regurgitation. Great Vessels The aortic root is normal in size. The ascending aorta is mildly dilated.3.66 cm Aortic arch is vikas l in caliber. The IVC collapses <50% with inspiration. Pericardium Mild circumferential pericardial effusion. 2D Dimensions IVSD d PLAX 0.98 cm M: 0.6-1.2 LV Vol A2C d MOD 125.1 mL LVPW d PLAX 1.01 cm M: 0.6 - 1.2 LV Vol A4C d MOD 146.6 mL LVID d PLAX 5.04 cm M: 4.2 - 5.8 LA Area A4C s MOD 20.52 cm2 LVDs 3.50 cm M: 2.5 - 4.0 LA Area A2C s MOD 22.47 cm2 Ao Root d 3.44 cm M: 3.1 - 3.7 LV EF A4C MOD 56.4 % RA Area A4C 19.09 cm2 LV EF A2C MOD 55.0 % Ao Asc Diam d 3.66 cm M: 2.6 - 3.4 LV EF Biplane MOD 53.4 % LV EF Teichholz 57.2 % SV 72.58 mL LVEF (Varela's) 53.45 % M: 52 - 72 LV Volume 135.80 mL M: 62 - 150 LV Volume Index 62.29 mL/m2 M: 34 - 74 LV Vol Biplane MOD 135.8 mL FS 30.15 % M-Mode TAPSE 1.95 cm (M/F) >1.7 LV Diastology MV E' medial 0.090 (>0.07 m/s) E/A Ratio 1.2 LV E/e MED 10.20 (<14) MV E Vmax 0.92 (0.4-1.3 m/s) MV E' lateral 0.101 (>0.1 m/s) MV A Vmax 0.75 (0.4-1.3 m/s) LV E/e LAT 9.10 (<14) MV E/A Ratio 1.21 MV E/E' medial 10.22 MV E/E' lateral 9.13 Aortic Valve LVOT Area 3.66 cm2 AoV Area Vmax 2.99 cm2 LVOT Vmax 1.19 m/s GRACE Mean Oh. 2.65 cm2 LVOT Mean Oh. 0.76 m/s LVOT Peak Grad 5.6 mmHg LVOT Mean Grad 2.8 mmHg LVOT VTI 0.207 m LVOT Diam s 2.15 cm AoV Vmax 1.46 m/s Velocity Ratio 0.81 AoV Mean Oh. 1.05 m/s AoV Peak Grad 8.5 mmHg LVOT SV 75.78 mL AoV Mean Grad 4.9 mmHg AoV VTI 0.265 m AoV Area VTI 2.86 cm2 Mitral Valve MV DT 223 (160-240 msec) MV PHT 65 msec MV Area PHT 3.40 cm2 MV VTI 0.333 m MV Area VTI 2.28 (4.0-6.0 cm2) Pulmonary Valve PV Vmax 0.97 (0.5-1.5 m/s) RVOT Peak Gr. 1.72 mmHg PV Peak Grad 3.7 mmHg RVOT Mean Gr. 0.80 mmHg PV Mean Grad 2.7 mmHg RVOT VTI 0.111 m PV VTI 0.205 m RVOT Vmax 0.66 m/s Tricuspid Valve TR Peak Grad 19.7 mmHg TR Vmax 2.22 m/s RA Pressure 8.00 mmHg RVSP (TR) 27.8 mmHg
[2021-03-18 05:34] LABS: Abs Immature Grans 0.07 10^3/uL (0.0-0.06); Absolute Basophil Count 0.08 10^3/uL (0.0-0.2); Absolute Eosinophil Count 0.12 10^3/uL (0.0-0.7); Absolute Lymphocyte Count 2.05 10^3/uL (1.2-3.4); Absolute Monocyte Count 2.15 10^3/uL (0.1-0.8); Absolute Neutrophil Count 10.68 10^3/uL (1.2-6.7); Basophils % 0.5; Eosinophils % 0.8; HCT 43.8 % (40.0-50.0); HGB 14.8 g/dL (13.5-17.5); Immature Grans % 0.5; Lymphocytes % 13.5; MCH 29.8 pg (27.0-33.0); MCHC 33.8 % (32.0-36.0); MCV 88.1 fL (80-95); MPV 11.4 fL (8.0-11.0); Monocytes % 14.2; Neutrophils % 70.5; Nucleated RBC 0 %; Platelet Count 290 10^3/uL (130-400); RBC 4.97 10^6/uL (4.36-5.78); RDW 13.9 % (11.8-14.1); RDW-SD 44.4 fL; WBC 15.15 10^3/uL (4.4-10.8)
[2021-03-18 06:06] LABS: Diff Comment Agrees w/ Instrument; RBC Morphology Normal
[2021-03-18] MEDS: cefTRIAXone 1 GM/50 ML BAG IVPB (08:35)
[2021-03-18] MEDS: Aspirin 81 MG CHEW PO (08:35)
[2021-03-18] MEDS: Insulin Aspart 300 UNITS/3 ML PEN SC ×2 (08:35→11:51)
[2021-03-18] MEDS: glipiZIDE 5 MG TAB PO (10:15)
[2021-03-18] MEDS: metFORMIN 500 MG TAB PO (10:15)
--- NOTE | 2021-03-18 13:22 | W.PM.DS.N ---
Date of service: 03/18/21 Time of Service: 13:22 DS: Diagnosis Discharge Diagnosis (1) Lingular pneumonia: Status: Acute (2) Pericardial effusion: Status: Acute (3) Atrial fibrillation with rapid ventricular response: Status: Acute (4) Diabetes mellitus: Status: Chronic (5) Chest pain: Status: Acute Discharge Plan Disposition Patient Disposition: HOME Condition: Critical Discharge Details Reason For Visit: atrial fibrillation with rapid ventricular rate,pn Admit Date/Time: 03/17/21 11:50 Admit Provider: Dani Law Attending Provider: Dani Law Primary Care Provider: Abril Hahn Hospital Course Hospital Course: This is a 60 yo male that has not been seen by a physician on a routine basis for >20 yrs. He was evaluated in the ED here in December of this year and prescribed antibiotic for pneumonia. He presented now with c/o chest pain. He describes Left sided chest pain that radiated into the mid neck. The pain began the night prior to admission. Worsened with leaning forward and with a deep breath. Pain was 8/10 upon presentation to the ED. He denied palpitations, N/V, diaphoresis. He was noted to have atrial fibrillation with a rapid ventricular response on monitor. EKG confirmed this. HR in the 140's. No STEMI noted. A CTA of the chest and abd showed a LLL infiltrate and a small pericardial effusion. No evidence of pulmonary embolism. He was given 15mg IV diltiazem with no improvement in heart rate and he continued to describe chest pain. Synchronized electrical cardioversion performed with 50 J and he converted to sinus rhythm in the 80's. However, he then returned to atrial fibrillation with a ventricular rate in the 120-130's. Diltiazem 20mg IV given and a diltiazem drip initiated. He subsequently did convert back to sinus rhythm. He denied a cough/sputum/SOA. Rocephin was initiated for evidence of PNA. His WBC count was 16.30. His glucose was 279. Creatinine 1.0. K 4.0. Mg 1.9. AST 7. ALT 23. Troponin < 0.05. Admitted to the ICU. New finding/diagnoses of DM2. A1c of 9.9. Discharged on Glipizide and Metformin. Diltiazem 180mg po daily. Augmentin BID to complete a course for PNA Follow up with PCP in 1-2 weeks. Home Meds and New Rx's Prescriptions: New metformin 500 mg Tablet 500 mg PO BID@0800,1700 Qty: 60 RF: 0 diltiazem HCl 180 mg Capsule,Extended Release 24hr 180 mg PO HS Qty: 30 RF: 0 aspirin 81 mg Tablet,Chewable 81 mg PO DAILY Qty: 0 RF: 0 glipizide 5 mg Tablet 5 mg PO DAILY Qty: 30 RF: 0 amoxicillin-pot clavulanate [Augmentin] 875-125 mg tablet 1 tab PO BID Qty: 10 RF: 0 No Action No Known Home Meds RF: 0 Discharge Instructions Instructions: Type 2 Diabetes in Adults: New Diagnosis (DC) Activity:: Activity as Tolerated Equipment/Supplies:: No Equipment Needed Diet:: diabetic diet Discharge Orders Discharge Orders: Discharge Order (Routine); Ordered 03/18/21 Ordered By: Dani Law Discharge Data Discharge Date/Time-TO BE ENTERED AT DEPARTURE: 03/18/21 14:46 DS: Summary Time Spent with Patient providing and/or coordinating discharge services: Less than 30 minutes Status at Discharge Functional status at discharge: independent ambulation Overall status at discharge: patient is progressing back to baseline Mental Status: mental status grossly normal Speech and Movement: speech and movement normal Mood: congruent mood Affect: normal affect Exam Psych Mental Status: mental status grossly normal Speech and Movement: speech and movement normal Mood: congruent mood Affect: normal affect DS: Data Vitals/I&O Vitals and I&O: Vital Signs Temperature 36.6 C 03/18/21 08:00 Temperature Source Temporal Artery Scan 03/18/21 08:00 Pulse 81 03/18/21 09:01 Pulse 76 03/18/21 10:00 Respiratory Rate 19 03/18/21 10:00 Respiratory Effort Non-Labored 03/18/21 08:00 Respiratory Depth Normal 03/18/21 08:00 Respiratory Pattern Normal 03/18/21 08:00 Blood Pressure 150/74 H 03/18/21 09:01 Blood Pressure Mean 90 03/18/21 09:01 Blood Pressure Position Supine 03/18/21 08:00 Pulse Oximetry 94 03/18/21 11:28 Oxygen Delivery Method Room Air 03/18/21 11:28 Oxygen Flow Rate 0 03/18/21 11:28 Pain Level 0 03/18/21 08:00 Intake & Output 03/17/21 03/18/21 03/18/21 23:59 11:59 23:59 Intake Total 587.459 / 607.959 790 / 1270 480 / 1270 Output Total 725 / 725 700 / 700 Balance -137.541 / -117.041 90 / 570 480 / 570 Weight 101.4 kg Intake: IV 107.459 / 127.959 550 / 550 Oral 480 / 480 240 / 720 480 / 720 Output: Urine 725 / 725 700 / 700 Other: Urine Color [place] Urine Appearance Clear Clear Urine Odor None Strong Voiding Methods Urinal Urinal Data Completed and Pending Labs on day of discharge: Labs from last 24 hours 03/18/21 03/17/21 03/17/21 05:19 17:10 13:10 WBC 15.15 H RBC 4.97 Hgb 14.8 Hct 43.8 MCV 88.1 MCH 29.8 MCHC 33.8 RDW 13.9 Plt Count 290 MPV 11.4 H Immature Gran % 0.5 Neutrophils % 70.5 Lymphocytes % 13.5 Monocytes % 14.2 Eosinophils % 0.8 Basophils % 0.5 Nucleated RBC % 0 Absolute Neutrophils 10.68 H Absolute Lymphocytes 2.05 Absolute Monocytes 2.15 H Absolute Eosinophils 0.12 Absolute Basophils 0.08 RBC Morphology Normal Hemoglobin A1c Troponin I < 0.05 < 0.05 SARS-CoV-2 (PCR) 03/17/21 03/17/21 12:25 10:10 WBC RBC Hgb Hct MCV MCH MCHC RDW Plt Count MPV Immature Gran % Neutrophils % Lymphocytes % Monocytes % Eosinophils % Basophils % Nucleated RBC % Absolute Neutrophils Absolute Lymphocytes Absolute Monocytes Absolute Eosinophils Absolute Basophils RBC Morphology Hemoglobin A1c 9.9 H Troponin I SARS-CoV-2 (PCR) Negative PENDING SALE TO [facility] Social History Smoking/Tobacco Use Status: Current every day Tobacco Type: cigarettes Smoking risk assessment performed?: Yes Alcohol Intake: current Alcohol Intake frequency: a few times a week Drug use: Never Do you feel safe at home: Yes Do you feel safe in your relationship?: Yes
== END 2021-03-18 14:46 | disposition home or self-care (01) | DRG 308 ==
LOC: ER 12:37 → ICU 13:41
PROVIDERS: Admitting Provider Family Medicine; Emergency Provider Student in an Organized Health Care Education/Training Program; PCP Nurse Practitioner Family; Visit Provider Family Medicine
DX: I48.91 Unspecified atrial fibrillation (principal); J18.8 Other pneumonia, unspecified organism; J91.8 Pleural effusion in other conditions classified elsewhere; I31.3 Pericardial effusion (noninflammatory); F17.210 Nicotine dependence, cigarettes, uncomplicated; E11.9 Type 2 diabetes mellitus without complications; Z20.822 Contact with and (suspected) exposure to COVID-19
CPT/HCPCS: 36415; 71275; 74175; 80053; 87635; 93005; 96365; 96366; 96372; 96375; 99291; J1650; 83036; 83735; 84484; 85025; 85610; 85730; 93010; 93306; 99223; J0696; J3010; J3490

== ENCOUNTER 2022-04-11 10:58 | Emergency (ER) | payer MEDICAID, SELFPAY ==
[2022-04-11 11:17] VITALS: BP 169/92; PULSE 77; RESP 18; TEMP 37.3; O2SAT 97
--- NOTE | 2022-04-11 11:45 | DI.RAD_ITS ---
Exam(s) XR FINGER RT INDEX EXAM: XR FINGER RT INDEX CLINICAL HISTORY: Avulsion injury. TECHNIQUE: 2D digital imaging was performed of the right finger. Three views were obtained. PA/AP, oblique, and lateral views were obtained. COMPARISON: No exams were available for comparison FINDINGS: BONES: There is a cortical lucency at the tip of the distal phalanx of the index finger suspicious fo r nondisplaced fracture. No bony destructive lesion is seen. JOINTS: No dislocation present. SOFT TISSUE: There appears to be a soft tissue amputation at the tip of the finger. IMPRESSION: Findings suspicious for nondisplaced fracture at the terminal tuft of the distal phalanx of the index finger. This is suggested on the lateral view. DATA REPOSITORY: RADIATION DOSE DELIVERED:
[2022-04-11] MEDS: Cellulose,Oxidized 2X3 PKT 1 EACH MC (12:05)
--- NOTE | 2022-04-11 12:09 | ED.GENADUL_ITS ---
Discharge Plan Disposition Patient Disposition: HOME Condition: Stable Discharge Details Clinical Impression: Finger avulsion, Finger fracture Primary Care Provider: Abril Hahn ED Provider: Bryanna Saldivar Home Meds and New Rx's Prescriptions: New cephalexin 500 mg capsule 500 mg PO Q6H 7 Days Qty: 28 0RF Continued metformin 500 mg Tablet 500 mg PO BID@0800,1700 Qty: 60 0RF diltiazem HCl 180 mg Capsule,Extended Release 24hr 180 mg PO HS Qty: 30 0RF aspirin 81 mg Tablet,Chewable 81 mg PO DAILY Qty: 0 0RF glipizide 5 mg Tablet 5 mg PO DAILY Qty: 30 0RF amoxicillin-pot clavulanate [Augmentin] 875-125 mg tablet 1 tab PO BID Qty: 10 0RF Discharge Instructions Additional Instructions: Keep wound clean and dry Return for spreading redness, fever, worsening pain Change dressing daily She is a Surgicel in place, try to keep it in place for 24 to 48 hours, you may soak it to remove it Of this orthopedics. Follow-up within the outpatient setting to be sure the field Referrals: Donn De Guzman MD [ [facility] STAFF PHYSICIAN] - Discharge Data Discharge Date/Time-TO BE ENTERED AT DEPARTURE: 04/11/22 12:51 Medical Decision Making avulsion fracture at [facility] noted per radiology interpretation and my review no visible bone noted dressed with xeroform and surgicel after copious cleansing with soap and water bulky dressing, keflex, and orthopedic referral Medical Records Medical records reviewed: Yes I reviewed the patient's medical records. HPI General Date/Time Provider Initiated Documentation: 04/11/22 11:39 . HPI Narrative: this 61 yo male presents with report of avulsion to right 2nd digit at 8 am this morning. hit finger with hammer. tdap utd per pt. Related Data Home Medications Medication Instructions Recorded Confirmed amoxicillin 875 mg-potassium 1 tab PO BID #10 tabs 03/18/21 clavulanate 125 mg tablet (Augmentin) aspirin 81 mg chewable tablet 81 mg PO DAILY #0 tabs 03/18/21 diltiazem HCl 180 mg 180 mg PO HS #30 caps 03/18/21 capsule,extended release 24 hr glipizide 5 mg tablet 5 mg PO DAILY #30 tabs 03/18/21 metformin 500 mg tablet 500 mg PO BID@0800,1700 #60 tabs 03/18/21 cephalexin 500 mg capsule 500 mg PO Q6H 7 days #28 caps 04/11/22 Previous Rx's Medication Instructions Recorded amoxicillin 875 mg-potassium 1 tab PO BID #10 tabs 03/18/21 clavulanate 125 mg tablet (Augmentin) aspirin 81 mg chewable tablet 81 mg PO DAILY #0 tabs 03/18/21 diltiazem HCl 180 mg 180 mg PO HS #30 caps 03/18/21 capsule,extended release 24 hr glipizide 5 mg tablet 5 mg PO DAILY #30 tabs 03/18/21 metformin 500 mg tablet 500 mg PO BID@0800,1700 #60 tabs 03/18/21 cephalexin 500 mg capsule 500 mg PO Q6H 7 days #28 caps 04/11/22 Allergies Allergy/AdvReac Type Severity Reaction Status Date / Time No Known Allergies Allergy Unverified 03/17/21 10:16 General Stated Complaint: Laceration CHANTELLE: 4 Review of Systems Narrative: Review of systems obtained x3 and negative aside from indication in [facility] PFSH All Active Problems (Updated 04/11/22 @ 14:38 by ESTER Schulz) Finger avulsion (Acute) Finger fracture (Acute) Chest pain (Acute) Diabetes mellitus (Chronic) Lingular pneumonia (Acute) Pulmonary infiltrate (Acute) Pleural effusion (Acute) Pericardial effusion (Acute) Atrial fibrillation with rapid ventricular response (Acute) Social History Smoking/Tobacco Use Status: Current every day Tobacco Type: cigarettes Tobacco: How many years used: 40 Smoking risk assessment performed?: Yes Alcohol Intake: current Alcohol Intake frequency: a few times a week Alcohol type: beer Drug use: Never Substance use type: does not use Do you feel safe at home: Yes Do you feel safe in your relationship?: Yes Exam Const General: cooperative, comfortable and no acute distress Extrem Hand/finger images: 1. avulsion noted, no visible bone n/v intact Course Vital Signs Vital signs: Vital Signs Temperature 37.3 C 04/11/22 11:17 Pulse 77 04/11/22 11:17 Respiratory Rate 18 04/11/22 11:17 Blood Pressure 169/92 H 04/11/22 11:17 Pulse Oximetry 97 04/11/22 11:17 Temperature 37.3 C 04/11/22 11:17 Temperature Source Temporal Artery Scan 04/11/22 11:17 Pulse 77 04/11/22 11:17 Respiratory Rate 18 04/11/22 11:17 Respiratory Effort Non-Labored 04/11/22 11:57 Blood Pressure 169/92 H 04/11/22 11:17 Blood Pressure Position Sitting 04/11/22 11:17 Pulse Oximetry 97 04/11/22 11:17 Oxygen Delivery Method Room Air 04/11/22 11:17 Oxygen Flow Rate 0 04/11/22 11:17 PAWSS Have you Been Recently Intoxicated or Drunk Within the Last 30 days?: No Have you Ever Experienced Previous Episodes of Alcohol Withdrawal?: No Have you ever Experienced Withdrawal Seizures?: No Have you ever Experienced Delirium Tremens(DT)s?: No Have you ever undergone [facility] ([facility]: No Have you ever Experienced Blackouts?: No Have you ever Combined Alcohol with other Downers within the last 90 days?: No Have you ever Combined Alcohol with any other Substance of Abuse during the last 90 days?: No Positive Blood Alcohol level on Presentation? [PCS.BAL]: No Evidence of Increased Autonomic Activity (i.e. HR>120, tremor, sweating, a gitation, nausea)?: No Result: 0
== END 2022-04-11 12:51 | disposition home or self-care (01) ==
PROVIDERS: Emergency Provider Physician Assistant; PCP Nurse Practitioner Family
DX: S62.600A Fracture of unspecified phalanx of right index finger, initial encounter for closed fracture (principal); F17.210 Nicotine dependence, cigarettes, uncomplicated; W22.8XXA Striking against or struck by other objects, initial encounter
CPT/HCPCS: 99283; 73140